=== PATIENT | male | born 1965 | race Caucasian/White ===

== ENCOUNTER 2023-12-14 09:02 | Emergency (ER) | payer MEDICARE, OTHER, SELFPAY ==
[2023-12-14 09:05] VITALS: BP 122/83
--- NOTE | 2023-12-14 09:10 | ED.GENMED ---
History of Present Illness
<Alina Francis PA-C - Last Filed: 12/14/23 19:02>
General
Chief Complaint: Fall
Source: patient
Exam Limitations: none
Time Seen by Provider: 12/14/23 09:09
Nursing documentation reviewed up to this point in time: agreed with
Travel History
Have you had any contact with someone who has COVID-19?: No
Do you have any symptoms of coronavirus? Fever > 100 degrees, chills, cough, shortness of breath, sore throat, loss of taste or smell, muscle aches, or headache?: No
History of Present Illness
History of Present Illness:
58-year-old male with a past medical history of hypertension, hyperlipidemia, GERD, CKD, polymyositis presenting the emergency department today with left foot pain following a fall. Patient states that this occurred last night when he woke up to
use the bathroom and when he was walking to the bathroom, his legs became weak and he fell forward, bending his toes and foot behind him. Currently patient endorses left foot pain, especially left great toe pain. Patient states that this will
happen from time to time as he has significant muscular weakness with his polymyositis. Patient denies any head strike with the fall.
Past History
<Alina Francis PA-C - Last Filed: 12/14/23 19:02>
Past History
ED Past Medical History: HTN and Other (Polymyositis, dermatomyositis, marginal cell lymphoma,)
ED Past Surgical History: Other (Tumor removal)
Social History
Tobacco: Non-smoker
Alcohol: None
Drug: None
Personal:
Living: with family
Phy Exam
<Alina Francis PA-C - Last Filed: 12/14/23 19:02>
Physical Exam
Physical Exam:
General: Patient is well appearing and in no acute distress; non-toxic
Skin: Warm and dry, no rashes or lesions
Head: Normocephalic, atraumatic
Eyes: Sclera non-icteric. EOMs intact.
Cardiac: Regular rate
Peripheral Vascular: No lower extremity edema. 2+ dorsalis pedis pulses bilaterally
Pulm: Normal respiratory effort
Abdomen: No abdominal tenderness
Musculoskeletal: Mild tenderness palpation of the dorsal aspect of the left foot, full range of motion bilateral lower extremities, no tenderness palpation of the left tibial and fibula. Ecchymosis seen on the left great toe.
Neuro: CN II-XII intact, no focal neurologic deficits.
Psychiatric: Appropriate mood and affect.
Course
<Alina Francis PA-C - Last Filed: 12/14/23 19:02>
Orders/Labs/Results
Orders:
Orders
12/14/23 09:07
Foot, Left 3 View [CR Foot - Left Min 3 Views] Urgent
Comment:
Reason For Exam: pain
Vital Signs
Initial and Last Documented VS:
Initial Vital Signs
Temp Pulse Resp BP Pulse Ox
98.0 F 84 16 122/83 99
12/14/23 09:05 12/14/23 09:05 12/14/23 09:05 12/14/23 09:05 12/14/23 09:05
Last Documented Vital Signs
Temp Pulse Resp BP Pulse Ox
98.0 F 84 16 122/83 99
12/14/23 09:05 12/14/23 09:05 12/14/23 09:05 12/14/23 09:05 12/14/23 09:05
<Oni Benavides DO - Last Filed: 12/14/23 09:58>
Orders/Labs/Results
Orders:
Orders
12/14/23 09:07
Foot, Left 3 View [CR Foot - Left Min 3 Views] Urgent
Comment:
Reason For Exam: pain
Vital Signs
Initial and Last Documented VS:
Initial Vital Signs
Temp Pulse Resp BP Pulse Ox
98.0 F 84 16 122/83 99
12/14/23 09:05 12/14/23 09:05 12/14/23 09:05 12/14/23 09:05 12/14/23 09:05
Last Documented Vital Signs
Temp Pulse Resp BP Pulse Ox
98.0 F 84 16 122/83 99
12/14/23 09:05 12/14/23 09:05 12/14/23 09:05 12/14/23 09:05 12/14/23 09:05
<Alina Francis PA-C - Last Filed: 12/14/23 19:02>
MDM/Problems Addressed
Differential Diagnosis Includes:
Toe contusion, phalanx fracture, ankle sprain
MDM/Problems Addressed:
Foot pain
Chronic conditions affecting care:
POTS, chronic kidney disease, lupus, polymyositis, neuropathy, hypertension, hyperlipidemia
Acute Exacerbation and/or Progression of Chronic Illness:
Polymyositis
<Alina Francis PA-C - Last Filed: 12/14/23 19:02>
*Critical Care Note
Total Time (30-74mins, 75-104mins- exclusive of procedures): Not Applicable
<Alina Francis PA-C - Last Filed: 12/14/23 19:02>
Patient Management
Escalation/DeEscalation of care consider admission/obs:
58-year-old male with a past medical history of hypertension, hyperlipidemia, GERD, CKD, polymyositis presenting the emergency department today with left foot pain following a fall. On exam, he has ecchymosis on the great toe as well as tenderness
to palpation of the dorsal aspect of the foot. X-ray was negative for any acute fractures or dislocation. Patient states that he cannot take Tylenol or Motrin for pain. Patient states that for similar injuries, short courses of oxycodone has
worked well for him in the past. Reviewed case with Dr. Benavides. Patient will be sent a few oxycodone tablets to help with his pain. Patient does have a small foot boot at home which she can wear for support. Patient stable for discharge.
ED Attending Note
<Alina Francis PA-C - Last Filed: 12/14/23 19:02>
-
Portions of this chart may have been created with voice recognition software.� Occasional wrong word or��sound alike� substitutions may have occurred due to the inherent limitations of voice recognition software.
<Oni Benavides DO - Last Filed: 12/14/23 09:58>
ED Attending Note
Patient seen and examined by attending physician: Yes
I performed the substantive portion of visit, reviewed & personally made and approve the management plan that is documented in note by myself or VIKI.: Yes
ED Attending Note:
Seen with PA examined independently toe contusion no fracture
Discharge Plan
Departure
Patient Disposition: Home (Routine Discharge)
Date of Disposition: 12/14/23
Time of Disposition: 09:54
Patient with high blood pressure during this ER visit?: No
Condition: Good
Discharge Problem:
Left foot pain
Instructions: Preventing falls in adults, RICE Therapy
Prescriptions:
New
oxycodone 5 mg capsule
5 mg PO Q6H PRN (Reason: Pain) Qty: 10 0RF
No Action
prednisone 20 MG tablet
10 mg PO DAILY
tacrolimus 5 MG capsule
4 mg PO DAILY
valsartan 320 MG tablet
320 mg PO DAILY
ibuprofen [Advil] 200 MG tablet
800 mg PO Q6HPRN PRN (Reason: pain)
bupropion HCl 150 MG tablet extended release 24 hr
300 mg PO DAILY
Hydroxychloroquine
200 mg PO BID
amlodipine 5 MG tablet
5 mg PO DAILY
omeprazole 40 MG capsule,delayed release(DR/EC)
40 mg PO DAILY
zoledronic akok-egfqanyb-tbsws 5 MG/100 ML piggyback
1 ' IV DIRECTED
Patient Comments:
IV once per year
Colchicine
0.8 mg PO DAILY
ondansetron 4 MG tablet,disintegrating
4 mg PO TIDPRN PRN (Reason: nausea/vomiting) Qty: 12 0RF
famotidine 20 MG tablet
20 mg PO BID Qty: 28 0RF
Rx Instructions:
Take 20 mg twice a day for 14 days
ascorbic acid (vitamin C) [Vitamin C] 500 MG tablet
1,000 mg PO BID Qty: 56 0RF
Rx Instructions:
Take 1,000 mg twice a day for 14 days
aspirin 81 MG tablet,chewable
81 mg PO DAILY Qty: 14 0RF
Rx Instructions:
Take 81 mg daily for 14 days
zinc sulfate 220 MG capsule
220 mg PO DAILY Qty: 14 0RF
Rx Instructions:
Take 220 mg daily for 14 days
cholecalciferol (vitamin D3) 1,000 UNITS tablet
2,000 units PO DAILY Qty: 28 0RF
Rx Instructions:
Take 2,000 units daily for 14 days
melatonin 5 MG tablet
5 mg PO HS Qty: 14 0RF
Rx Instructions:
Take 5 mg daily at bedtime for 14 days
cephalexin 500 mg capsule
500 mg PO QID 7 Days Qty: 28 0RF
Referrals:
Antoni Lynn MD [Family Provider] -
Activity Restrictions/Additional Instructions:
Please rest and keep the foot elevated above the level of the heart, this will help reduce swelling. Ice will also help with this, but please do not apply ice directly to the skin. For worsening pain, you can take one oxycodone tablet every 6 hours
as needed for pain.
Return to the emergency department should you develop any further injuries, inability to ambulate, or extreme pain and pallor in the left foot.
Please follow up with your primary care provider.
Interventions
Interventions:
*Risk Screen - Suicide Last Done: 12/14/23 10:24
*General Assessment Last Done: 12/14/23 10:24
*Neglect/Abuse Screening Last Done: 12/14/23 10:24
ED- Fall Risk Assessment Last Done: 12/14/23 10:25
*ED COVID-19 Vaccine History Last Done: 12/14/23 09:05
*Nursing Disposition Last Done: 12/14/23 10:25
ED-Musculoskeletal Assessment Last Done: 12/14/23 10:24
ED- Neurological Assessment Last Done: 12/14/23 10:24
ED-Skin Assessment Last Done: 12/14/23 10:24
Discharge Date and Time
Discharge Date/Time: 12/14/23 10:25
Print Language: KHMER
== END 2023-12-14 10:25 | disposition home or self-care (01) ==
LOC: EMR 09:02
PROVIDERS: EMERGENCY PHYSICIAN Emergency Medicine; FAMILY PHYSICIAN Internal Medicine Rheumatology
DX: M79.672 Pain in left foot (principal); N18.9 Chronic kidney disease, unspecified; I12.9 Hypertensive chronic kidney disease with stage 1 through stage 4 chronic kidney disease, or unspecified chronic kidney disease; E78.5 Hyperlipidemia, unspecified; K21.9 Gastro-esophageal reflux disease without esophagitis; M33.20 Polymyositis, organ involvement unspecified; G90.A Postural orthostatic tachycardia syndrome [POTS]; M32.14 Glomerular disease in systemic lupus erythematosus
CPT/HCPCS: 99283; 73630

== ENCOUNTER 2024-02-13 14:54 | Emergency (ER) | payer MEDICARE, OTHER, SELFPAY ==
[2024-02-13 15:17] VITALS: BP 121/74
--- NOTE | 2024-02-13 16:12 | ED.GENMED ---
History of Present Illness
General
Chief Complaint: Fall
Source: patient
Exam Limitations: none
Time Seen by Provider: 02/13/24 15:48
Nursing documentation reviewed up to this point in time: agreed with
History of Present Illness
History of Present Illness:
59 y/o M with h/o polymyositits
on immune suppressants
here with left ankle laceration today at 2 pm when he fell
pt was getting out of bed and fell injurying his left lateral ankle above the malleolus
he is able to bear weight
bleeding controlled
no numbness/tingling/weakness new from baseline
tetanus is unknown, pt would like one today
Past History
Past History
ED Past Medical History: HTN and Other (Polymyositis, dermatomyositis, marginal cell lymphoma,)
ED Past Surgical History: Other (Tumor removal)
Social History
Tobacco: Non-smoker
Alcohol: None
Drug: None
Personal:
Living: with family
Review of Systems
Review of Systems
Allergies reviewed?: Yes
All Other Systems: Not applicable
Phy Exam
Physical Exam
Physical Exam:
GENERAL: Alert , in no apparent distress, comfortable at rest
HEAD: NCAT
CV: 2+ DP PULSES B/L
NEUROLOGICAL: Alert and oriented, no focal neuro deficits, , 5/5 strength, sensation intact, ambulation slight limp right leg
SKIN: Warm and dry, laceration left lateral ankle 5 cm depe through subcutaneous tissue, no exposed bone
MUSCULOSKELETAL: left lateral ankle laceration
full ROM nontender
pulse intact
PSYCH: Normal and appropriate interaction.
Course
Orders/Labs/Results
Orders:
Orders
02/13/24 16:16
Tetanus/Diphth/Acelpertussis [Adacel] 0.5 ml IM .ONCE ONE
Vital Signs
Initial and Last Documented VS:
Initial Vital Signs
Temp Pulse Resp Pulse Ox
98.2 F 79 18 99
02/13/24 15:15 02/13/24 15:15 02/13/24 15:15 02/13/24 15:15
Last Documented Vital Signs
Temp Pulse Resp BP Pulse Ox
98.2 F 79 18 121/74 99
02/13/24 15:15 02/13/24 15:15 02/13/24 15:15 02/13/24 15:17 02/13/24 15:15
Procedures
Laceration Closure
Left Lateral Ankle:
Status of Wound: clean
Size of Wound in cm: 5
Description of Wound Edges: ragged and flap-poorly vascularized
Preparation: cleaned with saline
Anesthesia: 1% Lidocaine
Revision/Debridement: routine- no revision
Wound exploration: explored to base- no FB and no tendon involvement
Type of Closure: single layer closure
Skin Closure Material: 4-0 nylon
Number of sutures: 8
MDM/Problems Addressed
Differential Diagnosis Includes:
ankle laceration
MDM/Problems Addressed:
59 y/o M with poymyositis , chronic weakness, falls
laceration to left lat ankle after he fell today and scraped on the door metal piece on the floor
no change in fucntion
bleeding controlled
pt requests tetanus shot
offered xray but pt declines
wound is through subcutaneous fat down to tendon but not laceration of tendon
repaired and well approximated sutures
bactiracin dressing applied
*Critical Care Note
Total Time (30-74mins, 75-104mins- exclusive of procedures): Not Applicable
ED Attending Note
-
Portions of this chart may have been created with voice recognition software.� Occasional wrong word or��sound alike� substitutions may have occurred due to the inherent limitations of voice recognition software.
Discharge Plan
Departure
Patient Disposition: Home (Routine Discharge)
Date of Disposition: 02/13/24
Time of Disposition: 16:46
Patient with high blood pressure during this ER visit?: No
Discharge Problem:
Laceration of left leg
Instructions: Laceration Repair With Stitches (DC)
Prescriptions:
No Action
prednisone 20 MG tablet
10 mg PO DAILY
tacrolimus 5 MG capsule
4 mg PO DAILY
valsartan 320 MG tablet
320 mg PO DAILY
ibuprofen [Advil] 200 MG tablet
800 mg PO Q6HPRN PRN (Reason: pain)
bupropion HCl 150 MG tablet extended release 24 hr
300 mg PO DAILY
Hydroxychloroquine
200 mg PO BID
amlodipine 5 MG tablet
5 mg PO DAILY
omeprazole 40 MG capsule,delayed release(DR/EC)
40 mg PO DAILY
zoledronic bfml-bmqajqam-hnqnd 5 MG/100 ML piggyback
1 ' IV DIRECTED
Patient Comments:
IV once per year
Colchicine
0.8 mg PO DAILY
ondansetron 4 MG tablet,disintegrating
4 mg PO TIDPRN PRN (Reason: nausea/vomiting) Qty: 12 0RF
oxycodone 5 mg capsule
5 mg PO Q6H PRN (Reason: Pain) Qty: 10 0RF
Referrals:
Bhanu Tineo MD [Family Provider] - Follow up in 10 days (7-10 days)
Activity Restrictions/Additional Instructions:
KEEP THE WOUND CLEAN AND DRY FOR 24 HOURS
AFTER THAT YOU CAN GET IT WET IN THE BATH/SHOWER ONCE A DAY AND MAKE SURE IT IS CLEAN AND THERE IS NO DRIED BLOOD ON THE STITCHES
APPLY NEOSPORIN AND A BANDAID
THE STITCHES NEED TO BE REMOVED IN ABOUT 7-10 DAYS, SEE YOUR DOCTOR FOR THIS.
THE LAST DAY BEFORE STITCHES OUT, NO OINTMENT, LEAVE OPEN TO AIR
WATCH FOR SIGNS OF INFECTION AND RETURN NEEDED FOR PAIN, SWELLING, REDNESS, DRAINAGE, BLEEDING.
MOTRIN NEEDED FOR PAIN.
Interventions
Interventions:
*Risk Screen - Suicide Last Done: 02/13/24 16:21
*General Assessment Last Done: 02/13/24 16:21
*Neglect/Abuse Screening Last Done: 02/13/24 16:21
ED- Fall Risk Assessment Last Done: 02/13/24 16:21
*ED COVID-19 Vaccine History Last Done: 02/13/24 15:16
*Nursing Disposition Last Done: 02/13/24 16:55
ED-Musculoskeletal Assessment Last Done: 02/13/24 16:21
ED- Neurological Assessment Last Done: 02/13/24 16:21
ED-Skin Assessment Last Done: 02/13/24 16:21
Discharge Date and Time
Discharge Date/Time: 02/13/24 16:55
Print Language: SWISS
[2024-02-13 16:21] VITALS: BMI 24.9
[2024-02-13] MEDS: ADACEL 0.5 ML IM (16:38)
== END 2024-02-13 16:55 | disposition home or self-care (01) ==
LOC: EMR 14:54
PROVIDERS: EMERGENCY PHYSICIAN Emergency Medicine; FAMILY PHYSICIAN Family Medicine
DX: S91.012A Laceration without foreign body, left ankle, initial encounter (principal); W19.XXXA Unspecified fall, initial encounter; Z23 Encounter for immunization
CPT/HCPCS: 99282; 12002; 90471; 90715